=== PATIENT | female | born 1945 | race Caucasian/White ===

== ENCOUNTER 2021-08-06 10:24 | Inpatient (IN) | payer MEDICARE, OTHER ==
[~2021-08-06] VITALS: Ht 165.1 cm; Wt 68.6 kg
[2021-08-06] MEDS ORDERED: NORVASC10 MG PO (13:48)
[2021-08-06] MEDS ORDERED: PEPCID40 MG PO (13:49)
[2021-08-06] MEDS ORDERED: LISINOPRIL10 MG PO (13:49)
[2021-08-06 14:56] LABS: HEMOGLOBIN 13.7 gm/dl (12.3-15.3); RED BLOOD COUNT 4.52 M/UL (4.00-5.10); WHITE BLOOD COUNT 8.8 K/UL (4.5-11.0)
[2021-08-07 04:36] LABS: HEMOGLOBIN 12.6 gm/dl (12.3-15.3); RED BLOOD COUNT 4.13 M/UL (4.00-5.10)
[2021-08-07 04:49] LABS: WHITE BLOOD COUNT 13.9 K/UL (4.5-11.0)
[2021-08-07] MEDS ORDERED: NAPROXEN500 MG PO (09:26)
[2021-08-07] MEDS ORDERED: ACETAMINOPHEN325 MG PO (09:26)
[2021-08-07] MEDS ORDERED: CHILDREN'S ASPI81 MG PO (13:48)
[2021-08-07] MEDS ORDERED: COREG25 MG PO (13:49)
[2021-08-08 02:15] LABS: WHITE BLOOD COUNT 13.1 K/UL (4.5-11.0)
[2021-08-08 02:18] LABS: HEMOGLOBIN 10.5 gm/dl (12.3-15.3); RED BLOOD COUNT 3.45 M/UL (4.00-5.10)
[2021-08-09 03:13] LABS: HEMOGLOBIN 10.5 gm/dl (12.3-15.3); RED BLOOD COUNT 3.49 M/UL (4.00-5.10)
[2021-08-09 03:34] LABS: WHITE BLOOD COUNT 16.5 K/UL (4.5-11.0)
[2021-08-09 03:36] LABS: BUN/CREATININE RATIO 48 (0-10)
--- NOTE | 2021-08-11 17:25 | NUR ---
Patient arrived on the floor at approximately 1600. Patient was transferred to her bed and given the call light. No complaints at this time. Patient did refuse to work with PT and stated that she had already been active and out of bed today. Patient also refused dinner.
[2021-08-12 03:43] LABS: HEMOGLOBIN 11.1 gm/dl (12.3-15.3); RED BLOOD COUNT 3.59 M/UL (4.00-5.10); WHITE BLOOD COUNT 9.9 K/UL (4.5-11.0)
[2021-08-12 04:04] LABS: BUN/CREATININE RATIO 29 (0-10)
[2021-08-14 08:17] LABS: HEMOGLOBIN 12.5 gm/dl (12.3-15.3); WHITE BLOOD COUNT 10.7 K/UL (4.5-11.0)
[2021-08-14 08:18] LABS: RED BLOOD COUNT 4.13 M/UL (4.00-5.10)
[2021-08-14 08:32] LABS: BUN/CREATININE RATIO 11 (0-10)
[2021-08-15] MEDS ORDERED: ROXICODONE TAB 55 MG PO (13:36)
== END 2021-08-15 21:55 | disposition home health service (06) | DRG 326 ==
LOC: PROG CARE 10:24 → M/S 08-11 16:10
PROVIDERS: Internal Medicine; Physician Assistant Medical; Surgery; ADMIT Internal Medicine
PROC: 0DU607Z Supplement Stomach with Autologous Tissue Substitute, Open Approach (ICD-10-PCS; principal; 2021-08-06 15:50)
PROC: 0DB60ZX Excision of Stomach, Open Approach, Diagnostic (ICD-10-PCS; principal; 2021-08-06 15:50)
DX: K25.5 Chronic or unspecified gastric ulcer with perforation (principal); J96.21 Acute and chronic respiratory failure with hypoxia; K65.8 Other peritonitis; G93.41 Metabolic encephalopathy; N17.9 Acute kidney failure, unspecified; D62 Acute posthemorrhagic anemia; I10 Essential (primary) hypertension; F03.90 Unspecified dementia, unspecified severity, without behavioral disturbance, psychotic disturbance, mood disturbance, and anxiety; K21.9 Gastro-esophageal reflux disease without esophagitis; F15.10 Other stimulant abuse, uncomplicated; J44.9 Chronic obstructive pulmonary disease, unspecified; Z85.820 Personal history of malignant melanoma of skin; Z98.890 Other specified postprocedural states; Z82.3 Family history of stroke; Z79.82 Long term (current) use of aspirin; Z79.899 Other long term (current) drug therapy; E88.09 Other disorders of plasma-protein metabolism, not elsewhere classified; F17.200 Nicotine dependence, unspecified, uncomplicated
CPT/HCPCS: 36415; 71045; 80048; 80053; 81001; 82040; 82962; 83605; 83735; 85025; 85027; 87040; 87070; 87205; 88341; 88342; 94640; 94760; 97116-GP-CQ; 97161; C9113; J0360; J1100; J1170; J1335; J1650; J1885; J2001; J2270; J2405; J2543; J2550; J2704; J3010; J3475; J7120